=== PATIENT | male | born 1955 | race Hispanic/Latino ===

== ENCOUNTER 2018-06-21 14:11 | Emergency (ER) | payer OTHER ==
[2018-06-21] MEDS ORDERED: LIDOCAINE VISCOUS 2% SOLN 15 ML UDC ONE (15:37)
[2018-06-21 15:57] LABS: Urine Blood 2+ (NEG); Urine Glucose NEGATIVE (NEG); Urine Protein TRACE (NEG)
[2018-06-21 16:05] LABS: Urine RBC >50 /HPF (NONE SEEN)
[2018-06-21 16:06] LABS: Urine Amorphous Sediment 2+ /HPF (NONE SEEN); Urine Bacteria <20 /HPF (NONE SEEN); Urine Culture Reflex Order NOT NEEDED; Urine Mucus 1+ /HPF (NONE SEEN)
[2018-06-21 16:39] LABS: Absolute Lymphocytes (CBC) 1.5 K/uL (0.7-4.9); Absolute Monocytes 0.6 K/uL (0.1-1.3); Absolute Neutrophil 4.3 K/uL (1.8-8.0); Basophils % 0.6 % (0-1.3); Eosinophils % 0.3 % (0-4.4); Hematocrit 45.4 % (39.6-49.0); Lymphocytes % 23.9 % (15.3-44.8); Monocytes % 8.7 % (3.3-12.3); RBC Red Blood Cell Count 5.17 M/uL (4.33-5.43)
[2018-06-21 16:53] LABS: BUN Blood Urea Nitrogen 9 mg/dL (7-18); Bicarbonate 28 mmol/L (21-32); Glucose Level 121 mg/dL (74-106); Potassium 3.6 mmol/L (3.5-5.1); Sodium Level 142 mmol/L (136-145)
--- NOTE | 2018-06-21 17:30 | ER ---
Nurse's Notes [facility] Name: Sang Lofton Age: 63 yrs Sex: Male : 1955 Arrival Date: 06/21/2018 Time: 14:15 Bed 30 Private MD: Diagnosis: Retention of urine Presentation: 06/21 14:22 Presenting complaint: Patient states: "I haven't been able to pee since last night". Pt aa5 c/o abd bloating. Transition of care: patient was not received from another setting of care. Onset of symptoms was June 21, 2018. Risk Assessment: Do you want to hurt yourself or someone else? Patient reports no desire to harm self or others. Initial Sepsis Screen: Does the patient meet any 2 criteria? No. Patient's initial sepsis screen is negative. Does the patient have a suspected source of infection? No. Patient's initial sepsis screen is negative. Care prior to arrival: None. 14:22 Method Of Arrival: Ambulatory aa5 14:22 Acuity: SYLVIE 3 aa5 Historical: - Allergies: 14:24 No Known Allergies; aa5 - PMHx: 14:24 Prostate problem; Hypertension; aa5 - PSHx: 14:24 Prostate sx; aa5 - Immunization history:: Flu vaccine is not up to date. - Social history:: Smoking status: Patient/guardian denies using tobacco. - Ebola Screening: : No symptoms or risks identified at this time. Screenin:57 Abuse screen: Denies threats or abuse. Denies injuries from another. Nutritional rv screening: No deficits noted. Tuberculosis screening: No symptoms or risk factors identified. Fall Risk None identified. Assessment: 14:55 General: Appears in no apparent distress. uncomfortable, Behavior is calm, cooperative. rv Pain: Complains of pain in pelvis. Neuro: Level of Consciousness is awake, alert, obeys commands, Oriented to person, place, time, situation. Cardiovascular: Capillary refill < 3 seconds. Respiratory: Airway is patent. GI: No signs and/or symptoms were reported involving the gastrointestinal system. : Reports inability to void, since yesterday urgency. EENT: No signs and/or symptoms were reported regarding the EENT system. Derm: Skin is intact. Musculoskeletal: No signs and/or symptoms reported regarding the musculoskeletal system. 17:30 Reassessment: Patient appears in no apparent distress at this time. Patient and/or rv family updated on plan of care and expected duration. Pain level reassessed. Patient is alert, oriented x 3, equal unlabored respirations, skin warm/dry/pink. Patient denies pain at this time. Patient states feeling better. Patient states symptoms have improved. Vital Signs: 14:24 BP 146 / 81; Pulse 89; Resp 18 S; Temp 98.3(TE); Pulse Ox 94% on R/A; Weight 104.33 kg aa5 (R); Height 5 ft. 7 in. (170.18 cm) (R); Pain 7/10; 18:02 BP 144 / 71 LA Supine; Pulse 64; Resp 17 S; Pulse Ox 99% on R/A; rv 14:24 Body Mass Index 36.02 (104.33 kg, 170.18 cm) aa5 ED Course: 14:15 Patient arrived in ED. as 14:22 Arm band placed on. aa5 14:23 Triage completed. aa5 14:49 Helder Bruce, CHRISTOPHER is Primary Nurse. rv 14:57 Patient has correct armband on for positive identification. Placed in gown. Bed in low rv position. Call light in reach. Side rails up X 1. Adult w/ patient. Pulse ox on. NIBP on. 15:08 Anibal Fernandez PA is PHCP. cp 15:08 Anibal Flores MD is Attending Physician. cp 15:45 Bladder scan completed. 645 ml (pre-void/pre-cath). rv 16:00 Inserted saline lock: 20 gauge in right antecubital area, using aseptic technique. rv Blood collected. 16:01 Ward cath inserted, using sterile technique, 16 Fr., by radio director, balloon inflated, to rv gravity drainage, urine specimen collected. returned clear yellow urine. Patient tolerated well. 16:12 Bladder scan completed. 0 ml (post-void/post -cath). rv 17:19 US Rp Exam Complete In Process Unspecified. EDMS 17:28 Vini Willard MD is Referral Physician. cp 18:02 No provider procedures requiring assistance completed. IV discontinued, intact, rv bleeding controlled, No redness/swelling at site. Pressure dressing applied. Administered Medications: No medications were administered Output: 16:02 Urine: 700ml (Ward); Total: 700ml. rv Outcome: 17:29 Discharge ordered by . cp 18:03 Discharged to home ambulatory. rv 18:03 Condition: good 18:03 Discharge instructions given to patient, family, Instructed on discharge instructions, follow up and referral plans. medication usage, WARD CATH CARE Demonstrated understanding of instructions, follow-up care, medications, Prescriptions given X 2. 18:03 Patient left the ED. rv Signatures: Dispatcher [employer] Jessica Burgess Audri, RN RN aa5 Anibal Fernandez, PA PA Helder Chávez, RN RN rv Corrections: (The following items were deleted from the chart) 16:03 15:15 Urine 645, (Voided), Output Total 645. rv rv
--- NOTE | 2018-06-21 17:30 | EDPHYS ---
Physician Documentation [facility] Name: Sang Lofton Age: 63 yrs Sex: Male : 1955 Arrival Date: 06/21/2018 Time: 14:15 Bed 30 Private MD: ED Physician Anibal Flores HPI: 06/21 15:15 This 63 yrs old Male presents to ER via Ambulatory with complaints of Urinary cp Retention. 15:15 The patient presents with urinary symptoms, retention. Onset: The symptoms/episode cp began/occurred last night. Associated signs and symptoms: Pertinent negatives: constipation, diarrhea, fever, vomiting. Severity of symptoms: in the emergency department the symptoms are unchanged, despite home interventions. The patient has experienced a previous episode, several years ago. Historical: - Allergies: 14:24 No Known Allergies; aa5 - PMHx: 14:24 Prostate problem; Hypertension; aa5 - PSHx: 14:24 Prostate sx; aa5 - Immunization history:: Flu vaccine is not up to date. - Social history:: Smoking status: Patient/guardian denies using tobacco. - Ebola Screening: : No symptoms or risks identified at this time. ROS: 15:20 Constitutional: Negative for body aches, chills, fever, poor PO intake. cp 15:20 Eyes: Negative for injury, pain, redness, and discharge. cp 15:20 ENT: Negative for drainage from ear(s), ear pain, sore throat, difficulty swallowing, difficulty handling secretions. 15:20 Cardiovascular: Negative for chest pain, edema, palpitations. 15:20 Respiratory: Negative for cough, shortness of breath, wheezing. 15:20 Abdomen/GI: Positive for abdominal pain, of the suprapubic area, Negative for vomiting, diarrhea, constipation, black/tarry stool, rectal bleeding. 15:20 Back: Negative for radiated pain. 15:20 : Positive for difficulty urinating, Negative for burning with urination, bladder incontinence, testicular pain 15:20 Neuro: Negative for altered mental status, headache, weakness. 15:20 All other systems are negative. Exam: 15:27 Constitutional: The patient appears in no acute distress, alert, awake, cp non-diaphoretic, non-toxic, well developed, well nourished, uncomfortable. 15:27 Head/Face: Normocephalic, atraumatic. cp 15:27 Eyes: Periorbital structures: appear normal, Conjunctiva: normal, no exudate, no injection, Sclera: no appreciated abnormality, Lids and lashes: appear normal, bilaterally. 15:27 ENT: External ear(s): are unremarkable, Nose: is normal, Mouth: Lips: moist, Oral mucosa: moist, Posterior pharynx: Airway: no evidence of obstruction, patent. 15:27 Neck: ROM/movement: is normal, is supple, without pain, no range of motions limitations, no nuchal rigidity. 15:27 Chest/axilla: Inspection: normal. 15:27 Cardiovascular: Rate: normal, Rhythm: regular, Edema: is not appreciated. 15:27 Respiratory: the patient does not display signs of respiratory distress, Respirations: normal, no use of accessory muscles, no retractions, no splinting, no tachypnea, labored breathing, is not present, Breath sounds: are clear throughout, no decreased breath sounds, no stridor, no wheezing. 15:27 Abdomen/GI: Inspection: abdomen appears normal, Bowel sounds: active, all quadrants, Palpation: soft, in all quadrants, moderate abdominal tenderness, in the suprapubic area, rebound tenderness, is not appreciated, involuntary guarding, is not appreciated. 15:27 Back: ROM is normal. Vital Signs: 14:24 BP 146 / 81; Pulse 89; Resp 18 S; Temp 98.3(TE); Pulse Ox 94% on R/A; Weight 104.33 kg aa5 (R); Height 5 ft. 7 in. (170.18 cm) (R); Pain 7/10; 18:02 BP 144 / 71 LA Supine; Pulse 64; Resp 17 S; Pulse Ox 99% on R/A; rv 14:24 Body Mass Index 36.02 (104.33 kg, 170.18 cm) aa5 MDM: 15:09 Patient medically screened. cp 15:45 Differential diagnosis: nonspecific abdominal pain, appendicitis, urinary retention, cp prostatitis, urethritis. 17:28 Data reviewed: vital signs, nurses notes, lab test result(s), radiologic studies, cp ultrasound. 17:28 Counseling: I had a detailed discussion with the patient and/or guardian regarding: the cp historical points, exam findings, and any diagnostic results supporting the discharge/admit diagnosis, lab results, radiology results, the need for outpatient follow up, a urologist, to return to the emergency department if symptoms worsen or persist or if there are any questions or concerns that arise at home. Response to treatment: the patient's symptoms have markedly improved after treatment, VSS. Labs and US reviewed. Minor placed and will discharge to home for continued monitoring. 06/21 15:09 Order name: Urine Microscopic Only; Complete Time: 16:46 cp 06/21 16:47 Interpretation: Normal except: URBC >50; AMORPH 2+. cp 06/21 15:38 Order name: CBC with Diff; Complete Time: 16:47 cp 06/21 15:38 Order name: BMP; Complete Time: 16:58 cp 06/21 16:58 Interpretation: Normal except: CL 108; GLUC 121. cp 06/21 15:38 Order name: US Rp Exam Complete; Complete Time: 17:49 cp 06/21 17:49 Interpretation: Report reviewed. cp 06/21 15:38 Order name: Urine Culture cp 06/21 15:55 Order name: Urine Dipstick--Ancillary (enter results); Complete Time: 16:46 eb 06/21 15:09 Order name: Bladder Scanner: pre and post void; Complete Time: 15:54 cp 06/21 15:09 Order name: Urine Dipstick-Ancillary (obtain specimen); Complete Time: 15:54 cp 06/21 15:18 Order name: Minor; Complete Time: 16:01 cp Administered Medications: No medications were administered Disposition: 06/22 09:07 Co-signature as Attending Physician, Anibal Flores MD I agree with the assessment and marshal plan of care. Disposition: 06/21/18 17:29 Discharged to Home. Impression: Retention of urine. - Condition is Stable. - Discharge Instructions: Minor Catheter Care, Adult, Acute Urinary Retention, Male. - Prescriptions for Cipro 500 mg Oral Tablet - take 1 tablet by ORAL route every 12 hours for 7 days; 14 tablet. Flomax 0.4 mg Oral Capsule, Sust. Release 24 hr - take 1 capsule by ORAL route once daily for 7 days 1/2 hour following the same meal each day; 7 capsule. - Medication Reconciliation Form, Thank You Letter, Antibiotic Education, Prescription Opioid Use form. - Follow up: Vini Willard MD; When: 1 - 2 days; Reason: Recheck today's complaints. - Problem is new. - Symptoms have improved. Signatures: Dispatcher [employer] EDAnibal Crowley MD MD cha Calderon, Audri, RN RN aa5 Anibal Fernandez PA PA cp Vicente, Ronaldo, RN RN rv Corrections: (The following items were deleted from the chart) 06/21 18:03 17:29 06/21/2018 17:29 Discharged to Home. Impression: Retention of urine. Condition is rv Stable. Forms are Medication Reconciliation Form, Thank You Letter, Antibiotic Education, Prescription Opioid Use. Follow up: Viin Willard; When: 1 - 2 days; Reason: Recheck today's complaints. Problem is new. Symptoms have improved. cp
--- NOTE | 2018-06-21 17:34 | RAD REPORT ---
EXAM DESCRIPTION: US - Renal Ultrasound-Complete - 06/21/2018 5:19 pm CLINICAL HISTORY: Urinary retention COMPARISON: None. FINDINGS: The right kidney measures 12.9 x 6.2 x 5.9 cm. The left kidney measures 12.6 x 5.9 x 5.7 cm. Renal cortical thickness and echogenicity are normal. No hydronephrosis or suspicious renal mass. A 19 mm cyst is present upper pole right kidney. No bladder wall thickening or mass. No intraluminal stone or mass. IMPRESSION: No hydronephrosis or suspicious renal mass. No other significant findings.
== END 2018-06-21 18:03 | disposition home or self-care (01) ==
LOC: ER 14:11
DX: R33.9 Retention of urine, unspecified (principal); I10 Essential (primary) hypertension
CPT/HCPCS: 36415; 51702; 76770; 80048; 81003; 81015; 85025; 87086; 87088; 99284